=== PATIENT | female | born 1990 | race African-American/Black ===

== ENCOUNTER 2021-04-27 01:57 | Emergency (ER) | payer BC ==
[2021-04-27] MEDS ORDERED: predniSONE 20 MG TAB ONE (02:44)
[2021-04-27] MEDS ORDERED: Meclizine HCl 25 MG TAB ONE (02:44)
== END 2021-04-27 03:50 | disposition home or self-care (01) ==
LOC: NAV ERS 01:57
DX: H81.20 Vestibular neuronitis, unspecified ear (principal); E03.9 Hypothyroidism, unspecified
CPT/HCPCS: 99283; J7512